=== PATIENT | female | born 1990 | race American Indian/Alaskan Native ===

== ENCOUNTER 2016-09-19 07:43 | Emergency (ER) | payer MEDICAID ==
[2016-09-19] MEDS ORDERED: MOTRIN PO ONE (10:03)
[2016-09-19 10:25] LABS: Hematocrit 31.8 % (30.3-42.9); Hemoglobin 9.7 gm/dl (10.1-14.3); Mean Corpuscular HGB Conc 31 % (30-34); Platelet Count 308 K/mm3 (140-440); Red Blood Count 4.84 M/mm3 (3.65-5.03); Red Cell Distribution Width 17.9 % (13.2-15.2); White Blood Count 5.3 K/mm3 (4.5-11.0)
--- NOTE | 2016-09-19 10:36 | Emergency Department Report ---
HPI - General Chief Complaint: Chest Pain - HPI HPI: 26-year-old female comes in with complaint of chest tightness and just today. She reports that it hurts to take deep breaths complain of palpitation hurts when she moves or stretches. Patient denies any respiratory issues she denies any cough fever chills vomiting and nausea she does admit to headache and some weakness. Her past medical history of anemia. She currently has no primary care she has not taken anything for the chest pain and tenderness nor has she had this before. ED Past Medical Hx - Past Medical History Previous Medical History?: Yes Additional medical history: ANEMIA - Surgical History Past Surgical History?: Yes Additional Surgical History: TUBAL LIGATION - Social History Smoking Status: Never Smoker Substance Use Type: Alcohol - Medications Home Medications: Home Medications Medication Instructions Recorded Confirmed Last Taken Type Fluconazole [Diflucan TAB] 150 mg PO ONCE #2 tablet 03/24/16 Unknown Rx metroNIDAZOLE [Flagyl] 500 mg PO Q12HR #14 tab 03/24/16 Unknown Rx Ibuprofen [Motrin 800 MG tab] 800 mg PO ONCE #30 tablet 09/19/16 Unknown Rx ED Review of Systems ROS: Stated complaint: CHEST PAIN Other details as noted in HPI Constitutional: denies: chills, fever Eyes: denies: eye pain, eye discharge, vision change ENT: denies: throat pain Respiratory: denies: cough, shortness of breath, wheezing Cardiovascular: chest pain (with breathing and movement) Endocrine: no symptoms reported Gastrointestinal: denies: nausea, vomiting, constipation Skin: denies: rash, lesions Neurological: headache Physical Exam - Physical Exam Vital Signs: Vital Signs 09/19/16 08:00 Temperature 98.6 F Pulse Rate 82 Respiratory 16 Rate Blood Pressure 130/96 O2 Sat by Pulse 100 Oximetry General: GENERAL: Alert and oriented x3, no apparent distress, Normal Gait, atraumatic. HEAD: Head is normocephalic and a-traumatic. EYES: Extra ocular muscles are intact. Pupils are equal, round, and reactive to light and accommodation. EARS: symetrical, atraumatic, non tender, ear canal clear and moderate cerumen, tympanic membrance non inflamed. gross auditory nml bilaterally. NOSE: Nose symetrical, Nontender,Nares appeared normal. MOUTH:Mouth is well hydrated and without lesions. Tonsils nonerythematous or swollen, Uvula midline, Tongue not elevated. Mucous membranes are moist. Posterior pharynx clear, no exudate or lesions. Patent airways. NECK: Supple. Non edematous, No carotid bruits. No lymphadenopathy or thyromegaly. LUNGS: Symetrical with respiration, No wheezing, no rales or crackles, CTAB. HEART: S1, S2 present, regular rate and rhythm without murmur, no rubs, no gallops. ABDOMEN: No organomegaly was noted,Positive bowel sounds, soft, and non- distended. . Nontender to palpation on all Quadrants, NO CVA tenderness. EXTREMITIES/MUSCULOSKELETAL: No cyanosis, clubbing, rash, lesions or edema. Full ROM bilaterally. UE/LE Pulses 2+ bilaterally. LE and UE 5+ strength bilaterally NEUROLOGIC: No focal Deficit, Cranial nerves II through XII are grossly intact. No loss of sensation, No facial droop, Negative rhomberg. PSYCHIATRIC: Mood is congruent with affect, denies suicidal or homicidal ideations. SKIN: Warm and dry, No lesions, No ulceration or induration present ED Course Vital Signs 09/19/16 08:00 Temperature 98.6 F Pulse Rate 82 Respiratory 16 Rate Blood Pressure 130/96 O2 Sat by Pulse 100 Oximetry ED Medical Decision Making - Lab Data Result diagrams: 09/19/16 10:14 09/19/16 10:14 - Radiology Data Radiology results: image reviewed cc: OPAL WILLAMS Fluoro Time In Minutes: ROUTINE CHEST, TWO VIEWS: HISTORY: chest pain. The trachea, heart, mediastinal contour, lung cheney and bony thorax are unremarkable. IMPRESSION: Unremarkable chest x-ray. Transcribed By: TTR Dictated By: CHRIS SCHNEIDER JR, MD Electronically Authenticated By: CHRIS SCHNEIDER JR, MD Signed Date/Time: 09/19/16 1119 DD/ 111 - Medical Decision Making Patient's been evaluated by this provider in fast track. We will order a CBC a BMP and ibuprofen for pain. Will reevaluate the patient. Patient is PERC neg. Case was discussed with Dr. Moss. We will discharge patient with a referral to mechanical energy engineer to follow up with an abnormal EKG. D-dimer was negative, troponin negative CK-MB negative negative. Critical care attestation.: If time is entered above; I have spent that time in minutes in the direct care of this critically ill patient, excluding procedure time. ED Disposition Clinical Impression: Chest pain, atypical Disposition: DISCHARGED TO HOME OR SELFCARE Is pt being admited?: No Does the pt Need Aspirin: No Condition: Stable Instructions: Chest Pain (ED) Additional Instructions: Very important to follow-up with the cardiology. We have provided a referral in your discharge summary. Prescriptions: Ibuprofen [Motrin 800 MG tab] 800 mg PO ONCE #30 tablet Referrals: PRIMARY MD HAMILTON [Primary Care Provider] - 3-5 Days JOY LERMA MD [Staff Physician] - 3-5 Days Forms: Work/School Release Form(ED)
[2016-09-19 10:37] LABS: Mean Corpuscular Hemoglobin 20 pg (28-32); Mean Corpuscular Volume 66 fl (79-97)
[2016-09-19 10:42] LABS: Anion Gap 20 mmol/L; BUN/Creatinine Ratio 18.33; Blood Urea Nitrogen 11 mg/dL (7-17); Carbon Dioxide 25 mmol/L (22-30); Chloride 97.5 mmol/L (98-107); Glucose 94 mg/dL (65-100); Sodium 138 mmol/L (137-145)
--- NOTE | 2016-09-19 11:24 | XRay Report ---
ROUTINE CHEST, TWO VIEWS: HISTORY: chest pain. The trachea, heart, mediastinal contour, lung cheney and bony thorax are unremarkable. IMPRESSION: Unremarkable chest x-ray.
[2016-09-19 11:33] LABS: Creatine Kinase MB 1.3 ng/mL (0.0-4.0)
[2016-09-19 11:36] LABS: Creatine Kinase 118 units/L (30-135)
[2016-09-19 13:59] VITALS: BP 131/92
== END 2016-09-19 13:40 | disposition home or self-care (01) ==
LOC: ED 07:43
DX: R07.89 Other chest pain (principal); Z98.51 Tubal ligation status
CPT/HCPCS: 36415; 71020; 80048; 82550; 82553; 84484; 84703; 85027; 85379; 85610; 93005; 93010; 99284